=== PATIENT | male | born 1990 | race Hispanic/Latino ===

== ENCOUNTER 2016-06-21 11:27 | Emergency (ER) | payer OTHER ==
[2016-06-21 11:42] VITALS: RESP 17; TEMP 98.3; O2SAT 99
--- NOTE | 2016-06-21 12:08 | C.PDOC ---
History Of Present Illness 26 yr old male presents to the ER with complaints of pain to the left upper molar. Patient reports history of broken filling to the tooth and now reports of pain and swelling to the area for the past 2 days. Patient denies fever, vomiting, headache, weakness or numbness. Time Seen by Provider: 06/21/16 11:34 Chief Complaint (Nursing): Dental Pain History Per: Patient History/Exam Limitations: no limitations Onset/Duration Of Symptoms: Days (2) Current Symptoms Are (Timing): Still Present Past Medical History Reviewed: Historical Data, Nursing Documentation, Vital Signs Vital Signs: Last Vital Signs Temp 98.3 F 06/21/16 11:37 Pulse 85 06/21/16 13:03 Resp 17 06/21/16 13:03 BP 120/84 06/21/16 13:03 Pulse Ox 99 06/21/16 13:03 Family History: States: No Known Family Hx - Social History Hx Alcohol Use: No Hx Substance Use: Yes - Immunization History Hx Tetanus Toxoid Vaccination: Yes Hx Influenza Vaccination: No Hx Pneumococcal Vaccination: (unk) Review Of Systems Except As Marked, All Systems Reviewed And Found Negative. Constitutional: Negative for: Fever ENT: Positive for: Other ((+) Left upper molar pain ) Gastrointestinal: Negative for: Vomiting Neurological: Negative for: Weakness, Numbness Physical Exam - Physical Exam Appears: Well, Non-toxic, No Acute Distress Skin: Warm, Dry, No Rash Head: Atraumatic, Normacephalic Ear(s): Bilateral: Normal Oral Mucosa: Moist Teeth: Other (+) Left upper jaw, 2nd from the last molar is missing filling with a large caries. gums Tender to palpation with mild swelling. No fluctuance to the adjacent buccal gums, . ) Throat: Normal, No Erythema, No Exudate Neck: Normal, Normal ROM, Supple Lymphatic: No Adenopathy Chest: Symmetrical Cardiovascular: Rhythm Regular, No Murmur Respiratory: Normal Breath Sounds, No Rales, No Rhonchi, No Stridor, No Wheezing Extremity: Normal ROM, No Swelling Neurological/Psych: Oriented x3, Normal Speech ED Course And Treatment O2 Sat by Pulse Oximetry: 99 Medical Decision Making Medical Decision Making: PLAN: * Pen-Vee-K PO * Toradol IM Disposition Counseled Patient/Family Regarding: Diagnosis, Need For Followup, Rx Given - Disposition Disposition: HOME/ ROUTINE Disposition Time: 12:45 Condition: STABLE Additional Instructions: Follow up with a dentist as soon as possible. Use resource sheet provided for assistance finding a dentist. Take antibiotics as prescribed. Take Ibuprofen 600 mg by mouth every 6 hours (with food), alternate with Acetaminophen 1000 mg every 6 hours - example- ibuprofen at 6 am, acetaminophen at 9 am, ibuprofen at 12 pm, acetaminophen at 3 pm, etc Return to ER for any worsening symptoms. Prescriptions: Penicillin VK [Pen-Vee K] 500 mg PO QID #28 tab Instructions: Dental Caries (ED) Forms: General Discharge Instructions Print Language: [place] - Clinical Impression Clinical Impression: Dental caries - PA / STATISTICIAN MATHEMATICAL / Resident Statement MD/DO has reviewed & agrees with the documentation as recorded. - Scribe Statement The provider has reviewed the documentation as recorded by the Scribe Zohra Jung All medical record entries made by the Rubenibroxana were at my direction and personally dictated by me. I have reviewed the chart and agree that the record accurately reflects my personal performance of the history, physical exam, medical decision making, and the department course for this patient. I have also personally directed, reviewed, and agree with the discharge instructions and disposition.
[2016-06-21 13:05] VITALS: BP 120/84; PULSE 85
== END 2016-06-21 13:04 | disposition home or self-care (01) ==
LOC: C.ER 11:27
DX: K02.9 Dental caries, unspecified (principal)
CPT/HCPCS: 96372; 99283; J1885

== ENCOUNTER 2016-11-26 13:07 | Emergency (ER) | payer OTHER ==
[2016-11-26 13:28] VITALS: RESP 20; TEMP 98.4
[2016-11-26] MEDS ORDERED: Oxycodone/Acetaminophen 5/325 mg Tab PO STA (13:41)
[2016-11-26] MEDS ORDERED: Morphine 4 MG/ML VIAL ONE (14:02)
[2016-11-26 14:07] LABS: BASO # 0.1 K/uL (0.0-0.2); BASO % 1.3 % (0.0-2.0); EOS # 0.2 K/uL (0.0-0.7); EOS % 1.9 % (0.0-4.0); HEMATOCRIT 44.8 % (35.0-51.0); LYMPH # 2.8 K/uL (1.0-4.3); LYMPH % 26.3 % (20.0-40.0); MEAN CELL VOLUME 90.5 fL (80.0-94.0); MEAN CORPUSCULAR HEMOGLOBIN 30.9 pg (27.0-31.0); MEAN CORPUSCULAR HGB CONC 34.2 g/dL (33.0-37.0); MEAN PLATELET VOLUME 7.7 fL (7.2-11.7); MONO # 0.6 K/uL (0.0-0.8); MONO % 5.9 % (0.0-10.0); NRBC % 0.2 % (0.0-2.0); RED CELL DISTRIBUTION WIDTH 13.5 % (11.5-14.5); WHITE BLOOD COUNT 10.5 K/uL (4.8-10.8)
[2016-11-26 14:16] LABS: INR 0.9
[2016-11-26 14:28] LABS: CHLORIDE 105 mmol/L (98-107); POTASSIUM 4.5 mmol/L (3.6-5.2); SODIUM 146 mmol/L (132-148)
[2016-11-26 14:30] LABS: GFR AFRICAN-AMERICAN > 60
[2016-11-26 14:31] LABS: ALB/GLOB RATIO 1.6 (1.0-2.1); AST/SGOT 21 U/L (17-59); BILIRUBIN,TOTAL 0.6 mg/dL (0.2-1.3); BLOOD UREA NITROGEN 11 mg/dL (9-20); CALCIUM 9.4 mg/dl (8.6-10.4); CARBON DIOXIDE 26 mmol/L (22-30); GLUCOSE,RANDOM 76 mg/dL (75-110); TOTAL PROTEIN 7.4 g/dL (6.3-8.3)
[2016-11-26 14:51] LABS: ALKALINE PHOSPHATASE 59 U/L (38-126); ALT/SGPT 24 U/L (21-72)
--- NOTE | 2016-11-26 15:30 | C.PDOC ---
History Of Present Illness 26 y/o male presents to the ED for evaluation of right upper back and right forearm pain which began after he sustained a fall earlier today. Patient states he was fixing a stair when he fell backward. He denies head injury/LOC, nausea, vomiting, urinary/bowel incontinence, upper/lower extremity numbness/ weakness. Patient states last tetanus immunization was around 3 years ago. - HPI Time Seen by Provider: 11/26/16 13:38 Chief Complaint (Nursing): Trauma History Per: Patient History/Exam Limitations: no limitations Onset/Duration Of Symptoms: Hrs Location Of Injury: Right: Back (upper), Forearm Additional History Per: Patient - Fall Fall:Prior To Injury: Other (fell backwards ) Past Medical History Reviewed: Historical Data, Nursing Documentation, Vital Signs Vital Signs: Last Vital Signs Temp 98.4 F 11/26/16 13:23 Pulse 68 11/26/16 17:43 Resp 20 11/26/16 17:43 BP 124/72 11/26/16 17:43 Pulse Ox 99 11/26/16 18:47 - Medical History PMH: HTN Surgical History: No Surg Hx Family History: States: Unknown Family Hx - Social History Hx Alcohol Use: No Hx Substance Use: No - Immunization History Hx Tetanus Toxoid Vaccination: Yes Hx Influenza Vaccination: No Hx Pneumococcal Vaccination: (unk) Review Of Systems Gastrointestinal: Negative for: Nausea, Vomiting Genitourinary: Negative for: Incontinence Musculoskeletal: Positive for: Arm Pain (right, forearm ), Back Pain (right, upper ) Neurological: Negative for: Weakness, Numbness, Other (head injury/LOC) Physical Exam - Physical Exam Appears: Non-toxic, Other (painful distress ) Skin: Normal Color, Warm, Dry Head: Atraumatic, Normacephalic Eye(s): bilateral: Normal Inspection Oral Mucosa: Moist Neck: Supple Chest: Symmetrical, No Deformity, Tenderness (to right posterior costal margin ) Cardiovascular: Rhythm Regular, No Murmur Respiratory: Normal Breath Sounds, No Rales, No Rhonchi, No Wheezing Extremity: Normal ROM, Tenderness (right forearm ), Capillary Refill (less than 2 seconds ), No Deformity, No Swelling Pulses: Right Radial: Normal Neurological/Psych: Oriented x3, Normal Speech, Normal Cognition Gait: Steady ED Course And Treatment - Laboratory Results Result Diagrams: 11/26/16 14:03 11/26/16 14:03 O2 Sat by Pulse Oximetry: 99 (on RA) Pulse Ox Interpretation: Normal Medical Decision Making Medical Decision Making: Impression: 26 y/o male with right upper back, right forearm pain FAST NEG Progress: CT Chest, Ribs and Chest XR, right elbow XR, Right forearm XR ordered and reviewed. Pt received Morphine IV, Percocet PO. 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 Discussed with radiologist, Dr. Ovalle for iv contrast and risk benefit. dr ovalle states as pt has pain to right side, and not spleen, it would be better to perform dry ct vs contrast ct (he reports contrast will be helpful for splenic injury however pt has pain to only right side) ct imaging neg pain improved. njrx does not show previous narcotic rx. will dc with tramdol. pt asking for d/c. Disposition - Disposition Referrals: [facility] [Outside] [facility] [Outside] [facility] [Outside] Disposition: HOME/ ROUTINE Disposition Time: 06:00 Condition: GOOD Additional Instructions: please follow up with your doctor. return to er with worsening symptoms or concerns. Prescriptions: Naproxen [Naprosyn] 500 mg PO BID PRN #14 tablet PRN Reason: Pain, Mild (1-3) traMADol [Ultram] 50 mg PO TID PRN #10 tab PRN Reason: Pain, Severe (8-10) Instructions: Acute Low Back Pain (ED), Fall Prevention (ED), Rib Contusion (ED ) Forms: [facility] (Arabic), Work Excuse - Clinical Impression Clinical Impression: Fall, Chest wall contusion - Scribe Statement The provider has reviewed the documentation as recorded by the Scribe (Cici Denson) Provider Attestation: All medical record entries made by the Scribe were at my direction and personally dictated by me. I have reviewed the chart and agree that the record accurately reflects my personal performance of the history, physical exam, medical decision making, and the department course for this patient. I have also personally directed, reviewed, and agree with the discharge instructions and disposition.
[2016-11-26] MEDS ORDERED: HYDROmorphone 1 mg/ml ISec IVP STA (15:34)
[2016-11-26 16:11] LABS: RBC URINE 1 /hpf (0-3); URINE BACTERIA RARE (<OCC); URINE BILIRUBIN NEGATIVE (NEGATIVE); URINE BLOOD NEGATIVE (NEGATIVE); URINE GLUCOSE (UA) NORMAL (Normal); URINE KETONE NEGATIVE (NEGATIVE); URINE LEUKOCYTE ESTERASE NEG Leu/uL (Negative); URINE PROTEIN NEGATIVE (NEGATIVE); WBC URINE 1 /hpf (0-5)
--- NOTE | 2016-11-26 16:32 | RAD ---
PROCEDURE: Angulo angulo angulo Radiographs of the Chest and Right Ribs. HISTORY: trauma COMPARISON: None available. TECHNIQUE: Frontal radiograph of the chest and multiple oblique radiographs of the right ribs were obtained. FINDINGS: RIGHT RIBS: No fracture or focal lesion visualized. LUNGS: Clear. PLEURA: No pneumothorax or pleural fluid. CARDIOVASCULAR: Normal sized heart. No pulmonary vascular congestion. OTHER FINDINGS: None. IMPRESSION: Unremarkable radiographs of the chest and right ribs. No right rib fracture.
--- NOTE | 2016-11-26 16:34 | RAD ---
PROCEDURE: Radiographs of the Right Forearm HISTORY: trauma COMPARISON: None available. TECHNIQUE: Frontal and lateral views obtained. FINDINGS: BONES: No fracture or destructive lesion. JOINT SPACES: Unremarkable. OTHER FINDINGS: None. IMPRESSION: Unremarkable radiographs of the right forearm.
--- NOTE | 2016-11-26 16:34 | RAD ---
PROCEDURE: Radiographs of the right elbow. HISTORY: trauma COMPARISON: No prior. FINDINGS: BONES: Normal. No fracture. JOINTS: Normal. No osteoarthritis. SOFT TISSUES: Normal. JOINT EFFUSION: None. OTHER FINDINGS: None. IMPRESSION: Unremarkable radiographs of the right elbow.
[2016-11-26 16:41] LABS: URINE COLOR YELLOW (YELLOW)
--- NOTE | 2016-11-26 17:29 | CT ---
CT chest, abdomen, and pelvis without IV contrast Indication: Trauma Technique: Contiguous axial images of the chest, abdomen, and pelvis without oral or IV contrast. Coronal and Sagittal reformats generated and reviewed. This CT exam was performed using 1 or more of the falling dose reduction techniques: Automated exposure control, adjustment of the MAA and/or kV according to patient size, and/or use of iterative reconstruction technique. Radiation dose: Total exam DLP = 742.56 MGy-cm. Comparison: None available. Findings: Visualized portions of the inferior thyroid gland appear unremarkable. The unenhanced mediastinal and hilar vascular structures appear grossly unremarkable. The heart appears within normal limits of size. There is no focal consolidation, significant pleural effusion, or definite pneumothorax evident. No suspicious pulmonary nodules measuring greater than 5 mm. The noncontrast liver, spleen, kidneys, pancreas, adrenal glands, and gallbladder appear unremarkable. The stomach is nondistended. Lack of oral contrast limits evaluation for bowel pathology. The bowel loops appear within normal limits of caliber without evidence of intestinal obstruction. Moderate constipation. The appendix appears within normal limits of caliber. No secondary signs of acute appendicitis.There is no definite free air. Under distended urinary bladder limits evaluation. Partially imaged bilateral hydroceles. No acute osseous abnormality is detected. Impression: No acute traumatic pathology identified. Moderate constipation. Partially imaged bilateral hydroceles.
[2016-11-26 17:44] VITALS: BP 124/72; PULSE 68
[2016-11-26 18:47] VITALS: O2SAT 99
== END 2016-11-26 17:43 | disposition home or self-care (01) ==
LOC: C.ER 13:07
DX: S20.211A Contusion of right front wall of thorax, initial encounter (principal); W19.XXXA Unspecified fall, initial encounter
CPT/HCPCS: 71101; 71250; 73080; 73090; 74176; 80053; 81001; 85025; 85610; 85730; 96374; 96375; 96376; 99285; J1170; J2270